=== PATIENT | male | born 1940 | race Caucasian/White ===

== ENCOUNTER 2021-01-25 13:21 | Emergency (ER) | payer OTHER ==
[~2021-01-25] VITALS: Ht 177.8 cm; Wt 106.6 kg
[2021-01-25] MEDS ORDERED: cloNIDine HCL 0.1 MG TAB PO ONE (13:45)
[2021-01-25 15:19] VITALS: BP 189/108
== END 2021-01-25 15:21 | disposition home or self-care (01) ==
LOC: ER 13:21
DX: G51.0 Bell's palsy (principal); E78.5 Hyperlipidemia, unspecified; I10 Essential (primary) hypertension; Z90.49 Acquired absence of other specified parts of digestive tract
CPT/HCPCS: 70450

== ENCOUNTER 2025-07-03 09:45 | Emergency (ER) | payer OTHER ==
[~2025-07-03] VITALS: Ht 182.9 cm; Wt 100.0 kg
--- NOTE | 2025-07-03 10:05 | ED.PDOC ---
HPI Comments This is a 84 year old male EAMON presenting to the ED with chief complaint of chest pain. Patient reports that he has been experiencing left sided chest pain for the past 2 weeks. Patient relays that he saw his PCP a week ago and was advised to come to the ED due to his symptoms, however, due to having to care for his , he was unable to come in until now when he found someone to help him. Patient states that his pain normally occurs after exerting himself throughout the day, but during rest he has no pain. Patient notes that he has no pain at this time. Patient denies any SOB, dizziness, N/V, abdominal pain, or headache. Chief Complaint: Chest Pain Time Seen by MD: 10:03 Reviewed Notes: Nurses Notes, Operations Superintendent Notes, Medications, Allergies Allergies: Coded Allergies: NO KNOWN ALLERGIES (Unverified , 01/25/21) Information Source: Patient, Emergency Med Personnel Mode of Arrival: EMS Severity: Moderate Timing: Weeks Duration: Since onset Prehospital treatment: None Location: Chest (L) Radiation: No Radiation Quality: Heavy Onset: With Light Exertion, With Heavy Exertion Cardiac Risk Factors: Hyperlipidemia, HTN PE Risk Factors: None Past Medical History PAST MEDICAL HISTORY: High Lipids, HTN Surgical History: Appendectomy, Cholecystectomy Family History Family History: No family hx of Cancer, No family hx of DM, No family hx of Heart negrito, Family hx of HTN Social History Smoker: Non-Smoker Alcohol: Occasionally Drugs: Denies Drug Use Lives In: Home Constitutional: denies: chills, diaphoresis, fatigue, fever, malaise, sweats, weakness, others EENTM: denies: blurred vision, double vision, ear bleeding, ear discharge, ear drainage, ear pain, ear ringing, eye pain, eye redness, hearing loss, mouth pain, mouth swelling, nasal discharge, nose bleeding, nose congestion, nose abigail n, photophobia, tearing, throat pain, throat swelling, voice changes, others Respiratory: denies: cough, hemoptysis, orthopnea, SOB at rest, shortness of breath, SOB with excertion, stridor, wheezing, others Cardiovascular: reports: chest pain; denies: dizzy spells, diaphoresis, Dyspnea on exertion, edema, irregular heart beat, left arm pain, lightheadedness, palpitations, PND, syncope, others Gastrointestinal: denies: abdomen distended, abdominal pain, blood streaked bowels, constipated, diarrhea, dysphagia, difficulty swallowing, hematemesis, me marlin, nausea, poor appetite, poor fluid intake, rectal bleeding, rectal pain, vomiting, others Genitourinary: denies: burning, dysuria, flank pain, frequency, hematuria, incontinence, penile discharge, penile sore, pain, testicle pain, testicle swelling, urgency, others Neurological: denies: dizziness, fainting, headache, left sided numbness, left sided weakness, numbness, paresthesia, pre-existing deficit, right sided numbness, right sided weakness, seizure, speech problems, tingling, tremors, weakness, others Musculoskeletal: denies: back pain, gout, joint pain, joint swelling, muscle pain, muscle stiffness, neck pain, others Integumetry: denies: bruises, change in color, change in hair/nails, dryness, laceration, lesions, lumps, rash, wounds, others Allergic/Immunocompromised: denies: Difficulty Healing, Frequent Infections, Hives, Itching, others Hematologic/Lymphatic: denies: anemia, blood clots, easy bleeding, easy bruising, swollen glands, others Endocrine: denies: excessive hunger, excessive sweating, excessive thirst, excessive urination, flushing, intolerance to cold, intolerance to heat, unexplained weight gain, unexplained weight loss, others Psychiatric: denies: anxiety, bipolar disorder, depression, hopeless, panic disorder, schizophrenia, sleepless, suicidal, others All Other Systems: Reviewed and Negative Physical Exam General Appearance: No Apparent Distress, Normal HEENT: Normal ENT Inspection, Pharynx Normal, TMs Normal Neck: Full Range of Motion, Non-Tender, Normal, Normal Inspection Respiratory: Chest Non-Tender, Lungs Clear, No Accessory Muscle Use, No Respiratory Distress, Normal Breath Sounds Cardiovascular: No Edema, No JVD, No Murmur, No Gallop, Normal Peripheral Pulses, Regular Rate/Rhythm Breast Exam: Deferred Gastrointestinal: No Organomegaly, Non Tender, No Pulsatile Mass, Normal Bowel Sounds, Soft Genitalia: Deferred Pelvic: Deferred Rectal: Deferred Extremities: No calf tenderness, Normal capillary refill, Normal inspection, Normal range of motion, Non-tender, No pedal edema Musculoskeletal : Apperance: Normal Neurologic: Alert, form building supervisor II-XII nml as Tested, No Motor Deficits, Normal Affect, Normal Mood, No Sensory Deficits Cerebellar Function: Normal Reflexes: Normal Skin: Dry, Normal Color, Warm Lymphatic: No Adenopathy Was a procedure done? Was a procedure done?: No CP Differential Dx Differential Diagnosis: TN, PAC's Differential Diagnosis: HTN Essential, HTN Accelerated Differential Diagnosis: Gastritis, Myocardial Infarction X-Ray, Labs, Meds, VS Vital Signs Date Time Temp Pulse Resp B/P (MAP) Pulse Ox O2 Delivery O2 Flow Rate FiO2 07/03/25 14:16 97.9 60 12 144/68 (93) 96 97.9 07/03/25 12:46 65 07/03/25 10:46 65 07/03/25 10:15 98.6 69 15 135/72 (93) 93 98.6 07/03/25 10:15 69 15 93 Room Air* 0 21 07/03/25 09:49 69 07/03/25 09:46 98.0 68 16 138/81 98 98.0 Lab Test 07/03/25 13:15 07/03/25 11:19 07/03/25 10:06 Range/Units Troponin I High Sensitivity 11 10 10 </=54 ng/L White Blood Count 6.8 4.4-10.8 10^3/uL Red Blood Count 4.46 L 4.5-5.90 10^6/uL Hemoglobin 14.1 13.5-17.5 g/dL Hematocrit 40.9 L 41.0-53.0 % Mean Corpuscular Volume 91.7 80.0-100.0 fL Mean Corpuscular Hemoglobin 31.5 28.0-32.0 pg Mean Corpuscular Hemoglobin Concent 34.3 32.0-36.0 g/dL Red Cell Distribution Width 14.2 11.8-14.3 % Platelet Count 220 140-450 10^3/uL Mean Platelet Volume 7.7 6.9-10.8 fL Neutrophils (%) (Auto) 78.7 37.0-80.0 % Lymphocytes (%) (Auto) 11.6 10.0-50.0 % Monocytes (%) (Auto) 6.4 0.0-12.0 % Eosinophils (%) (Auto) 2.2 0.0-7.0 % Basophils (%) (Auto) 1.1 0.0-2.0 % Neutrophils # (Auto) 5.3 1.6-8.6 10 ^3/uL Lymphocytes # (Auto) 0.8 0.4-5.4 10 ^3/uL Monocytes # (Auto) 0.4 0-1.3 10 ^3/uL Eosinophils # (Auto) 0.1 0-0.8 10 ^3/uL Basophils # (Auto) 0.1 0-0.2 10 ^3/uL Nucleated Red Blood Cells 0.0 % Sodium Level 142 136-145 mmol/L Potassium Level 4.1 3.5-5.1 mmol/L Chloride Level 109 H 98-107 mmol/L Carbon Dioxide Level 26 20-31 mmol/L Anion Gap 7 5-15 Blood Urea Nitrogen 20 9-23 mg/dL Creatinine 1.28 0.700-1.30 mg/dL Glomerular Filtration Rate Calc 56 >90 mL/min BUN/Creatinine Ratio 15.6 10.0-20.0 Serum Glucose 107 H 74-106 mg/dL Calcium Level 8.5 L 8.7-10.4 mg/dL B-Type Natriuretic Peptide 201.09 0-100 pg/mL Chest XR: FINDINGS: Lines and tubes: None Cardiomediastinal silhouette: Enlarged Pulmonary vasculature: normal Lung expansion: normal Lung airspace: normal Lung interstitium: normal Pleura: normal Pneumothorax: no Bones: Unremarkable Other: no IMPRESSION: No acute intrathoracic abnormality. Cardiomegaly. Images Reviewed?: Images reviewed and evaluated by me Time of 1ST Reevaluation: 11:03 Reevaluation 1ST: Unchanged Patient Education/Counseling: Diagnosis, Treatment Family Education/Counseling: No Family Present SEPSIS Sepsis Screen Date sepsis recognized/suspect: Jul 03, 2025 Time Sepsis recognized/suspect: 1000 Recent Procedure: No On Antibiotic Therapy: No Respiratory Rate >20: No Heart Rate >90: No Temp<36 C (96.8 F) or >38.3 C: No SBP <90 or MAP <65 mmHG: No New Acute Mental Status Change: No Is the patient on CPAP, BIPAP,: No Physician Orders Electrocardigram (07/03/25 09:52) Electrocardigram (07/03/25 10:52) Electrocardigram (07/03/25 12:52) Chest Portable (07/03/25 09:54) Nitroglycerin Sublingual (Ntrostat Subli (07/03/25 15:15) Morphine Sulfate Injection (07/03/25 15:15) Ondansetron Hcl (Zofran) (07/03/25 15:15) Aspirin Tablet (07/03/25 15:15) Vital Signs Date Time Temp Pulse Resp B/P (MAP) Pulse Ox O2 Delivery O2 Flow Rate FiO2 07/03/25 14:16 97.9 60 12 144/68 (93) 96 97.9 07/03/25 12:46 65 07/03/25 10:46 65 07/03/25 10:15 98.6 69 15 135/72 (93) 93 98.6 07/03/25 10:15 69 15 93 Room Air* 0 21 07/03/25 09:49 69 07/03/25 09:46 98.0 68 16 138/81 98 98.0 Laboratory Tests Test 07/03/25 10:06 White Blood Count 6.8 10^3/uL (4.4-10.8) Departure 1 Departure Time of Disposition: 15:15 (Egnar Authorization [id number] presented with chest pain that was concerning for possible STEMI, ACS, PE, Pneumonia, Muscle Strain, COPD, Dissection. Data: 1. I ordered and reviewed the result of at least 3 labs including a CBC, BMP, and Troponin. 2. I independently interpreted the following tests: EKG which shows normal sinus rhythm and Chest X-ray which shows benign chest.Risk:This patient has a high risk of morbidity due to further diagnostic testing or treatment and may suffer from an acute cardiac or respiratory disorder. Workup reveals acute chest pain and patient should be admitted for further workup and possible expert consultation. ) Impression: Primary Impression: Acute chest pain Disposition: 02 SHORT TERM HOSPITAL Admit to: Med Surg Condition: Serious Critical Care Note Critical Care Time?: Yes Critical care comment: Acute chest pain Authorized and Performed by: Alanna Zavaleta MD Total critical care time: Approximately 38 minutes Due to a high probability of clinically significant, life threatening deter ioration, the patient required my highest level of preparedness to intervene emergently and I personally spent this critical care time directly and personally managing the patient. This critical care time included obtaining a history; examining the patient; pulse oximetry; ordering and review of studies; arranging urgent treatment with development of a management plan; evaluation of patient's response to treatment; frequent reassessment; and, discussions with other providers. This critical care time was performed to assess and manage the high probability of imminent, life-threatening deterioration that could result in multi-organ fa ilure. It was exclusive of separately billable procedures and treating other patients and teaching time. Please see my other sections and the rest of the note for further information on patient assessment and treatment. Stability Stability form required: No Heart Score Heart Score: Heart Score Response (Comments) Value History Moderate Suspicious 1 EKG Normal 0 Age >65 2 Risk Factors >3 or Hx ASHD 2 Troponin Normal limit 0 Total 5 I personally scribed for ALANNA ZAVALETA MD ([email or web address]) on 07/03/25 at 10:05. Electronically submitted by Josh Ramsey ([email or web address]). I personally scribed for ALANNA ZAVALETA MD ([email or web address]) on 07/03/25 at 12:06. Electronically submitted by Josh Ramsey ([email or web address]). ALANNA ZAVALETA MD Jul 03, 2025 10:05
[2025-07-03 10:15] VITALS: PULSE 69; RESP 15; O2SAT 93
[2025-07-03 10:19] LABS: Hematocrit 40.9 % (41.0-53.0); Hemoglobin 14.1 g/dL (13.5-17.5); Mean Corpuscular Hemoglobin 31.5 pg (28.0-32.0); Mean Corpuscular Volume 91.7 fL (80.0-100.0); Nucleated Red Blood Cells % 0.0 %
--- NOTE | 2025-07-03 10:32 | DVH ---
XY CHEST PORTABLE, HISTORY: cp COMPARISON: None None TECHNICAL DATA: 1 view of the chest was obtained. FINDINGS: Lines and tubes: None Cardiomediastinal silhouette: Enlarged Pulmonary vasculature: normal Lung expansion: normal Lung airspace: normal Lung interstitium: normal Pleura: normal Pneumothorax: no Bones: Unremarkable Other: no IMPRESSION: No acute intrathoracic abnormality. Cardiomegaly.
[2025-07-03 10:45] LABS: Chloride 109 mmol/L (98-107); Potassium 4.1 mmol/L (3.5-5.1); Sodium 142 mmol/L (136-145)
[2025-07-03 10:46] LABS: Anion Gap 7 (5-15); Carbon Dioxide 26 mmol/L (20-31)
[2025-07-03 10:47] LABS: Calcium 8.5 mg/dL (8.7-10.4)
[2025-07-03 10:51] LABS: BUN/Creatinine Ratio 15.6 (10.0-20.0); Blood Urea Nitrogen 20 mg/dL (9-23); Glucose 107 mg/dL (74-106)
[2025-07-03] MEDS: MORPHINE SULFATE 4 MG/ML SYR/VIAL IV ONE (15:54)
[2025-07-03] MEDS: ONDANSETRON HCL 4 MG/2 ML VIAL IV ONE (15:54)
[2025-07-03] MEDS: NITROGLYCERIN 0.4 MG SL TAB SL ONE (15:55)
[2025-07-03 18:33] VITALS: BP 145/88; PULSE 86; RESP 14; TEMP 97.7; O2SAT 94
[2025-07-03 18:39] LABS: Urine Protein, UAD Negative (Negative)
--- NOTE | 2025-07-03 18:46 | ECG ---
[facility] Test Date: 2025-07-03 Test Time: 09:47:58 Pat Name: PHOEBE CEBALLOS Department: Room: Gender: M Clinical Assistant: FUENTES : 1940 Requested By: ALANNA ZAVALETA Order Number: [id number] Reading MD: Rosalio Shipman Measurements Intervals [place] Rate: 69 P: 13 MT: 203 QRS: -23 QRSD: 142 T: -15 QT: 417 QTc: 447 Interpretive Statements Sinus rhythm Atrial premature complexes Right bundle branch block Probable LVH with secondary repol abnrm Electronically Signed On 07-07-2025 10:18:54 PDT by Rosalio Shipman Please click the below link to view image of tracing.
--- NOTE | 2025-07-03 18:47 | ECG ---
[facility] Test Date: 2025-07-03 Test Time: 10:44:12 Pat Name: PHOEBE CEBALLOS Department: Room: Gender: M Commercial Housekeeper: FUENTES : 1940 Requested By: ALANNA ZAVALETA Order Number: [id number] Reading MD: Rosalio Shipman Measurements Intervals [place] Rate: 65 P: 27 LA: 207 QRS: -21 QRSD: 141 T: 0 QT: 438 QTc: 456 Interpretive Statements Sinus rhythm Atrial premature complexes Right bundle branch block Electronically Signed On 07-07-2025 10:19:04 PDT by Rosalio Shipman Please click the below link to view image of tracing.
--- NOTE | 2025-07-03 18:47 | ECG ---
[facility] Test Date: 2025-07-03 Test Time: 12:45:12 Pat Name: PHOEBE CEBALLOS Department: Room: Gender: M Senior Mainframe Programmer Analyst: FUENTES : 1940 Requested By: ALANNA ZAVALETA Order Number: [id number] Reading MD: Rosalio Shpiman Measurements Intervals [place] Rate: 65 P: 38 VA: 213 QRS: -20 QRSD: 150 T: -5 QT: 465 QTc: 484 Interpretive Statements Sinus rhythm Borderline prolonged VA interval Right bundle branch block Electronically Signed On 07-07-2025 10:19:27 PDT by Rosalio Shipman Please click the below link to view image of tracing.
== END 2025-07-03 18:48 | disposition short-term general hospital (02) ==
LOC: EDBD 09:45 → ER 09:45
DX: R07.89 Other chest pain (principal); I10 Essential (primary) hypertension; Z90.49 Acquired absence of other specified parts of digestive tract; Z79.899 Other long term (current) drug therapy
CPT/HCPCS: 36415; 71045; 80048; 81001; 83880; 84484; 85025; 93005